=== PATIENT | female | born 1995 | race African-American/Black ===

== ENCOUNTER 2017-01-15 10:48 | Emergency (ER) | payer MEDICAID, OTHER ==
[~2017-01-15] VITALS: Ht 170.2 cm; Wt 56.4 kg
[2017-01-15 11:14] VITALS: BP 112/82
== END 2017-01-15 12:06 | disposition home or self-care (01) ==
LOC: EMS 10:49
DX: S61.213A Laceration without foreign body of left middle finger without damage to nail, initial encounter (principal); W45.8XXA Other foreign body or object entering through skin, initial encounter; Y93.89 Activity, other specified; Y92.89 Other specified places as the place of occurrence of the external cause; Y99.0 Civilian activity done for income or pay
CPT/HCPCS: 99283